=== PATIENT | male | born 1995 | race Caucasian/White ===

== ENCOUNTER 2020-12-31 13:15 | Outpatient (RCR) | payer BC, SELFPAY ==
--- NOTE | 2020-12-03 11:27 | PTOPEVAL ---
Thank you for referring Sudheer Mcmahan to [facility].? The patient is scheduled to be seen for therapy? 1x/week for 6 weeks. Please review, sign, date and return this plan of care JANINA. I agree with and certify that the following plan of care is medically necessary. Referring Physician Date Attending Provider: Brian Murray, DO Physical Therapy Evaluation Diagnosis shoulder dislocation Onset Sep 2020 Cause shoulder dislocation Subjective Information Pt felt a pop in his shoulder Query Text:As Reported By Patient/ with reaching back in Sep 2020. Family Denies problems with UE at rest. But increased pain with reaching behind back or lifting weighted objects. He also has pain with reaching overhead. He limited to 20-30 # above waist. He is having increased pain with resistance training. 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 Pain Assessment Self Report Pain Assessment Left Shoulder(s) Reported Pain Level 2 Pain Frequency Intermittent Lowest Pain Intensity 0 Greatest Pain Intensity 2 Pain Aggravating Factors Exercise/Activity Upper Extremity Range of Motion General Upper Extremity Range of Motion Reason Not Measured WNL/Left,WNL/Right Gross Upper Extremity Range of Motion no pain Comments Upper Extremity Muscle Strength Testing Scapular/Shoulder Right Scapular Retraction - Middle Trapezius 4 Good Scapular Retraction - Lower Trapezius 3+ Fair + Scapular Protraction - Serratus 4- Good - Left Scapular Retraction - Middle Trapezius 4 Good Scapular Retraction - Lower Trapezius 3+ Fair + Scapular Protraction - Serratus 3+ Fair + Muscle Length Testing Muscle Length Testing Latissmus Dorsi Muscle Length (R) Moderate Tightness,(L) Moderate Tightness Pectoralis Major Muscle Length (R) Moderate Tightness,(L) Moderate Tightness Pectoralis Minor Muscle Length (R) Severe Tightness,(L) Severe Tightness Posture Standing Position Head/C-Spine Posture Side Bent Left,Forward Head Shoulder Posture (L) Rounded,(R) Rounded,(L) Forward,(R) Forward,(L) Elevated Scapula Posture (L) Protracted,(R) Protracted, (L) Depressed,(R) Depressed,(L ) Winged,(R) Winged,(L) Tipped ,(R) Tipped Arm Posture (L) Internally
--- NOTE | 2020-12-19 11:42 | PCPTNOTE ---
Patient called & cancelled scheduled appointment this date due to medical emergency.
--- NOTE | 2020-12-31 13:58 | PCPTNOTE ---
Admitting Provider: Attending Provider: Brian Murray DO Patient:Sudheer Mcmahan Date of :1995 Discharge Note Patient has been seen for 4 therapy visits from 12/03/20 to 12/31/20 to address shoulder impairments. He demonstrates normal shoulder motion, normal shoulder and scapular strength and is able to return to resistance training without problems. The goals have been 95% met at this time. Will D/C skilled therapy with Sudheer to continue with home program. Thank you for referring this patient to [facility]. Please review, sign, date and return this discharge summary JANINA. I have been updated about the patient's current status and I agree with discharge from the above service at this time. Referring Physician Date
== END 2021-01-01 08:10 | disposition home or self-care (01) ==
LOC: ANHPT 13:15
PROVIDERS: PCP Internal Medicine; Visit Provider Internal Medicine
DX: S43.006D Unspecified dislocation of unspecified shoulder joint, subsequent encounter (principal)
CPT/HCPCS: 97110; 97140; 97161

== ENCOUNTER 2022-01-24 12:15 | Outpatient (CLI) | payer BC, SELFPAY ==
--- NOTE | ~2022-01-24 | XR_ITS ---
XR hand RT min 3V DATE: 01/24/2022 12:32 INDICATION: Dog bite 5 days ago. Second metacarpophalangeal area puncture wound, swelling TECHNIQUE: 3 views COMPARISON: None FINDINGS: No radiopaque soft tissue foreign body or subcutaneous emphysema. No fracture, dislocation, periosteal reaction or bone destruction. IMPRESSION: Negative Reviewed, dictated and finalized at location B. IMPRESSION: Negative
== END 2022-01-24 12:16 | disposition home or self-care (01) ==
PROVIDERS: PCP Internal Medicine; Visit Provider Internal Medicine
DX: S61.451A Open bite of right hand, initial encounter (principal); W54.0XXA Bitten by dog, initial encounter
CPT/HCPCS: 73130